=== PATIENT | female | born 1975 | race Caucasian/White ===

== ENCOUNTER 2022-09-02 15:43 | Emergency (ER) | payer OTHER, SELFPAY ==
[2022-09-02] VITALS (21 sets, daily range): BP systolic 136–185; BP diastolic 85–100; PULSE 67–85; RESP 18; TEMP 36.2; O2SAT 95–100; BMI 39.5
--- NOTE | 2022-09-02 16:05 | ED.GENADULT ---
HPI - General Adult General Time Seen by Provider: 16:05 Date Seen: 09/02/22 Chief complaint: Chest Pain Stated complaint: Chest Pain Time Seen by Provider: 09/02/22 16:05 Source: patient and RN notes reviewed Mode of arrival: ambulatory Limitations: no limitations History of Present Illness HPI narrative: Lisa is a very pleasant 47-year-old female previously healthy who comes to the emergency room with abdominal and chest pain. Patient states that she had been at work and when she was departing at approximately 0230 she had the onset of some abdominal pain that radiated into her back. She shows this to be epigastric area. She described it is coming in waves. She thought this was indigestion and to drink some water and some had some Tums at home. Unfortunately her pain started worsening and radiating into her chest and into her jaw. She notes that the pain is definitely in her back and is coming in waves. She has never had anything like this in the past. She does not think that movement seems to worsen the pain. She has no nausea with this and has not been dealing with any recent cough cold congestion or fevers. Patient denies lower extremity edema, history of E DVT or calf pain. She still retains a gallbladder. She notes that at 5 years of age she had a umbilical hernia repair otherwise no other abdominal surgeries. Related Data Home Medications Medication Instructions Recorded Confirmed No Known Home Medications 09/02/22 09/02/22 Allergies Allergy/AdvReac Type Severity Reaction Status Date / Time codeine AdvReac Intermediate Agitated Verified 09/02/22 15:59 Review of Systems Status of ROS: Reports: 10 or more systems reviewed and unremarkable except as noted in History and below Const: Denies: fever or chills ENMT: Denies: throat pain, neck pain, throat swelling or hoarseness Cardio: Reports: chest pain; Denies: palpitations, edema, swelling of feet/ankles or shortness of breath with exertion Resp: Denies: shortness of breath or cough GI: Reports: abdominal pain; Denies: nausea, vomiting or diarrhea : Denies: painful urination Musculo: Denies: neck pain Neuro: Denies: headache Allergy/Immuno: Denies: throat swelling PFSH PFSH Social History Smoking Status: Never smoker Do you use any of these nicotine containing products: None Second hand tobacco smoke exposure: Yes How often do you have a drink containing alcohol: monthly or less How many standard drinks containing alcohol do you have on a typical day: 1 or 2 How often do you have six or more drinks on one occasion: Never AUDIT-C Alcohol total score: 1 Non-prescribed substance use: denies use service: No Exam Narrative: Exam Narrative: Patient is alert and oriented. She is nontoxic in appearance. Eyes are clear and neck is supple without lymphadenopathy. Heart with a regular rate and rhythm. I do auscultate 2/6 murmur otherwise no other abnormalities. Lungs are clear bilaterally. Abdomen is soft nontender. Perhaps some mild tenderness in the epigastrium however but negative Velasquez sign. Negative pulsating mass. Abdomen is not distended. Bowel sounds are present. Lower extremities without edema. No calf tenderness. Pedal pulses are symmetrical. Const: Vital Signs, click to edit/add: Vital Signs - 24 hr 09/02/22 15:59 09/02/22 16:16 09/02/22 16:30 Temperature 97.2 F L Pulse Rate 73 76 Pulse Rate [Pulse Oximeter] 75 Respiratory Rate 18 Blood Pressure Blood Pressure [Ri ght Upper Arm] 185/100 H Pulse Oximetry 100 97 97 Oxygen Delivery Me thod Room Air 09/02/22 16:32 09/02/22 16:45 09/02/22 17:00 Temperature Pulse Rate 78 85 79 Pulse Rate [Pulse Oximeter] Respiratory Rate Blood Pressure 147/86 H Blood Pressure [Ri ght Upper Arm] Pulse Oximetry 96 98 98 Oxygen Delivery Me thod 09/02/22 17:02 09/02/22 17:15 09/02/22 17:30 Temperature Pulse Rate 81 80 73 Pulse Rate [Pulse Oximeter] Respiratory Rate Blood Pressure 138/92 H Blood Pressure [Ri ght Upper Arm] Pulse Oximetry 96 97 97 Oxygen Delivery Me thod 09/02/22 17:32 09/02/22 17:47 09/02/22 18:00 Temperature Pulse Rate 74 73 70 Pulse Rate [Pulse Oximeter] Respiratory Rate Blood Pressure 144/89 H Blood Pressure [Ri ght Upper Arm] Pulse Oximetry 95 99 99 Oxygen Delivery Me thod 09/02/22 18:02 09/02/22 18:15 09/02/22 18:30 Temperature Pulse Rate 68 67 73 Pulse Rate [Pulse Oximeter] Respiratory Rate Blood Pressure 161/94 H Blood Pressure [Ri ght Upper Arm] Pulse Oximetry 99 100 97 Oxygen Delivery Me thod 09/02/22 18:32 09/02/22 18:45 09/02/22 19:00 Temperature Pulse Rate 70 71 73 Pulse Rate [Pulse Oximeter] Respiratory Rate Blood Pressure 154/85 H Blood Pressure [Ri ght Upper Arm] Pulse Oximetry 97 99 95 Oxygen Delivery Me thod 09/02/22 19:02 09/02/22 19:15 09/02/22 19:30 Temperature Pulse Rate 69 74 72 Pulse Rate [Pulse Oximeter] Respiratory Rate Blood Pressure 136/94 H Blood Pressure [Ri ght Upper Arm] Pulse Oximetry 96 99 98 Oxygen Delivery Me thod Documenting provider has reviewed patient's vital signs: yes Course Course Hospital Course: At this time differential diagnosis includes but is not limited to acute coronary event, angina, aortic dissection, pneumonia, pleurisy, pneumothorax, gastritis, of GERD, biliary colic, bowel obstruction. Will place an IV and draw labs to include CBC, comprehensive panel, urinalysis, CRP, lipase, troponin. Will do an EKG and chest x-ray as well. Reevaluation(s) Reevaluation #1: Patient noted to have a negative troponin. EKG is reassuring. Ultrasound of the abdomen is ordered. Patient notes improvement of her pain. She notes at rest it is a 1-3 but when the waves come it does increase to a 5. Mainly in her back. Reevaluation #2: Patient notes complete resolution of her discomfort. Did not receive any pain medications here. Blood pressure is much improved. Vital Signs Vital signs: Initial Vital Signs Temperature 97.2 F L 09/02/22 15:59 Temperature Source Temporal Artery Scan 09/02/22 15:59 Pulse Rate 75 09/02/22 15:59 Respiratory Rate 18 09/02/22 15:59 Blood Pressure 185/100 H 09/02/22 15:59 Blood Pressure Mean 128 H 09/02/22 15:59 Pulse Oximetry 100 09/02/22 15:59 Oxygen Delivery Method Room Air 09/02/22 15:59 Vital Signs Temperature 97.2 F L 09/02/22 15:59 Pulse Rate 75 09/02/22 15:59 Respiratory Rate 18 09/02/22 15:59 Blood Pressure 185/100 H 09/02/22 15:59 Pulse Oximetry 100 09/02/22 15:59 Oxygen Delivery Method Room Air 09/02/22 15:59 Temperature 97.2 F L 09/02/22 15:59 Pulse Rate 72 09/02/22 19:30 Respiratory Rate 18 09/02/22 15:59 Blood Pressure 136/94 H 09/02/22 19:02 Pulse Oximetry 98 09/02/22 19:30 Oxygen Delivery Method Room Air 09/02/22 15:59 Medical Decision Making MDM Narrative Medical decision making narrative: 1. Atypical chest pain-patient noted to have EKGs of normal sinus rhythm without any acute changes and 2 sets of negative cardiac enzymes approximately 2 hours apart. Patient has had complete resolution of her symptoms. In addition D-dimer is negative and there is no evidence of mediastinal widening. This would suggest no evidence of aortic dissection or PE. 2. Abdominal pain-suspect that this is biliary colic. Ultrasound was negative for any gallbladder abnormalities and so I do suggest referral for HIDA scan as an outpatient. In the meantime omeprazole 20 mg p.o. daily for 2 weeks. 3. Disposition -home at this time. However for worsening symptoms return to the emergency room for further evaluation. Patient voices understanding. She [place] live in town and close to the hospital. Dictation done with voice recognition, and as a result, wrong word or [id number] substitutions may have occurred.? There may be errors in the script that have gone undetected.? Please consider this when interpreting information found in this chart. Medical Records Medical records reviewed: Yes I reviewed the patient's medical records Lab Data Lab results reviewed: Yes I reviewed the patient's lab results Labs: Lab Results 09/02/22 09/02/22 09/02/22 Range/Units 16:25 17:45 18:45 WBC 6.05 (4.50-11.00) K/uL RBC 4.91 (4.00-5.20) m/uL Hgb 14.1 (12.0-16.0) gm/dL Hct 42.4 (33.0-51.0) % MCV 86 (80-100) fL MCH 29 (26-34) pg MCHC 33 (32-36) gm/dL RDW Coeff of [place] 12.7 (11.5-15.5) % Plt Count 252 (140-440) K/uL Neut % (Auto) 54.7 (42.0-72.0) % Lymph % (Auto) 34.0 (20-44) % [place] % (Auto) 8.3 (0.0-11.0) % Eos % (Auto) 2.3 (0.0-7.0) % Baso % (Auto) 0.7 (0.0-3.0) % Neut # (Auto) 3.31 (1.7-7.0) K/uL Lymph # (Auto) 2.06 (0.90-2.90) K/uL [place] # (Auto) 0.50 (0.00-0.90) K/UL Eos # (Auto) 0.14 (0.00-0.50) K/uL Baso # (Auto) 0.04 (0.00-0.30) K/uL D-Dimer Quant (PE/DVT) 0.34 (0.00-0.50) ug/ml Sodium 139 (135-149) mmol/L Potassium 3.7 (3.6-5.1) mmol/L Chloride 104 (96-114) mmol/L Carbon Dioxide 28 (20-32) mmol/L BUN 10 (5-24) mg/dL Creatinine 0.9 (0.5-1.5) mg/dL Estimated Creat Clear 66.73 Estimated GFR 79 ml/min Glucose 86 (60-115) mg/dL Calcium 9.9 (8.4-10.6) mg/dL Total Bilirubin 0.5 (0.1-1.5) mg/dL Direct Bilirubin 0.2 (0.0-0.5) mg/dL AST 34 (12-35) U/L ALT 46 H (4-35) U/L Alkaline Phosphatase 82 (40-150) U/L C-Reactive Protein 0.8 (0.5-1.0) mg/dL Total Protein 7.5 (6.0-8.3) g/dL Albumin 4.5 (3.3-5.0) g/dL Lipase 66 (23-300) U/L Urine Color Yellow (Yellow) Urine Appearance Clear (Clear) Urine pH 7.0 (5.0-8.5) Ur Specific [place] 1.015 (1.000-1.030) Urine Protein Negative (Negative) Urine Glucose (UA) Negative (Negative) Urine Ketones Negative (Negative) Urine Blood Negative (Negative) Urine Nitrite Negative (Negative) Urine Bilirubin Negative (Negative) Urine Urobilinogen 0.2 (0.2-1.0) Ur Leukocyte Esterase Negative (Negative) Urine RBC 0-2 (0-2) Urine WBC 0-2 (0-5) Ur Squamous Epith Cells None (None-Few) Urine Bacteria None (None) POC Troponin I 0.00 L 0.00 L (0.01-0.04) ng/ml Imaging Data Chest x-ray: Attestation: I have reviewed the pertinent imaging results. My impression: No obvious infiltrates or widened mediastinum Radiologist's impression: There is no focal consolidation, effusion, or pneumothorax. The cardiomediastinal silhouette is within normal limits. The bony thorax is grossly intact. Impression: No acute cardiopulmonary abnormality. US - abdomen: Attestation: I have reviewed the pertinent imaging results. ECG Data Attestation: I personally reviewed and interpreted this ECG as follows: Interpretation: EKG by my read shows sinus rhythm at a rate of 79. I do not note any acute ST or T-wave changes. EKG 2. By my read shows sinus rhythm at a rate of [address] or T-wave changes. Normal QT and AR intervals. Discharge Plan Discharge Clinical Impression: Atypical chest pain Patient Disposition: Home, Self-Care Condition: Improved Additional Instructions: Suggest follow-up with our surgeon or your primary doctor for scheduling of an outpatient HIDA scan. Suggest use of omeprazole over the counter, 1 tablet daily for 2 weeks. Return to the emergency room for worsening symptoms. Prescriptions: No Action No Known Home Medications Follow Up/Referrals: Dinah Naylor MD [Primary Care Provider] - Stand Alone Forms: [employer] Info Instructions
--- NOTE | 2022-09-02 16:14 | CRLHL7_ITS ---
For Patients: As a result of the Century Cures Act, medical imaging exams and procedure reports are released immediately into your electronic medical record. You may view this report before your referring provider. If you have questions, please contact your health care provider. Indication: Chest pain Comparison: None available. Technique: Single AP view chest Findings: There is no focal consolidation, effusion, or pneumothorax. The cardiomediastinal silhouette is within normal limits. The bony thorax is grossly intact. Impression: No acute cardiopulmonary abnormality. Dictated by Daryn Willingham MD @ 09/02/2022 5:45:34 PM (Electronically Signed)
[2022-09-02 16:44] LABS: Basophils Absolute Auto 0.04 K/uL (0.00-0.30); Basophils Percent Auto 0.7 % (0.0-3.0); Eosinophils Absolute Auto 0.14 K/uL (0.00-0.50); Eosinophils Percent Auto 2.3 % (0.0-7.0); Hematocrit 42.4 % (33.0-51.0); Hemoglobin* 14.1 gm/dL (12.0-16.0); Lymphocytes Absolute Auto 2.06 K/uL (0.90-2.90); Mean Corpuscular HGB Conc 33 gm/dL (32-36); Mean Corpuscular Hemoglobin 29 pg (26-34); Mean Corpuscular Volume 86 fL (80-100); Monocytes Percent Auto 8.3 % (0.0-11.0); Neutrophils Absolute Auto 3.31 K/uL (1.7-7.0); Neutrophils Percent Auto 54.7 % (42.0-72.0); Platelet Count* 252 K/uL (140-440); RDW Coefficient of Variation % 12.7 % (11.5-15.5); Red Blood Count 4.91 m/uL (4.00-5.20); White Blood Count* 6.05 K/uL (4.50-11.00)
[2022-09-02 17:02] LABS: D Dimer Quantitative* 0.34 ug/ml (0.00-0.50)
[2022-09-02 17:03] LABS: Slide Review Reflex No
[2022-09-02 17:25] LABS: Albumin* 4.5 g/dL (3.3-5.0); Chloride* 104 mmol/L (96-114)
[2022-09-02 17:26] LABS: Potassium* 3.7 mmol/L (3.6-5.1); Sodium* 139 mmol/L (135-149)
[2022-09-02 17:27] LABS: Creatinine* 0.9 mg/dL (0.5-1.5); Est. Creatinine Clearance* 66.73; Estimated Glomerular Filt Rate 79 ml/min
[2022-09-02 17:28] LABS: Alanine Aminotransferase* 46 U/L (4-35); Alkaline Phosphatase* 82 U/L (40-150); Aspartate Amino Transferase* 34 U/L (12-35); Bilirubin Direct* 0.2 mg/dL (0.0-0.5); Bilirubin Total* 0.5 mg/dL (0.1-1.5); Blood Urea Nitrogen* 10 mg/dL (5-24); Carbon Dioxide* 28 mmol/L (20-32); Lipase* 66 U/L (23-300); Total Protein* 7.5 g/dL (6.0-8.3)
[2022-09-02 17:29] LABS: Calcium* 9.9 mg/dL (8.4-10.6); Glucose* 86 mg/dL (60-115)
[2022-09-02 17:31] LABS: C Reactive Protein* 0.8 mg/dL (0.5-1.0)
--- NOTE | 2022-09-02 17:45 | CRLHL7_ITS ---
For Patients: As a result of the Cures Act, medical imaging exams and procedure reports are released immediately into your electronic medical record. You may view this report before your referring provider. If you have questions, please contact your health care provider. INDICATION: Epigastric chest abdominal pain TECHNIQUE: Ultrasound abdomen limited. Sonographic images of the right upper quadrant were obtained using ramos-scale and color Doppler images. COMPARISON: None FINDINGS: Liver: Moderate fatty infiltration of the liver is noted. Mild hepatomegaly is present with the liver measuring 18 cm. Gallbladder: The neck of the gallbladder is not well demonstrated. No gallstones or sludge seen in the lumen. The gallbladder wall is normal in appearance. No pericholecystic fluid is present. No sonographic Velasquez???s sign is present. Common bile duct: 5 mm. No intrahepatic biliary ductal dilatation seen. Pancreas: The visualized portions of the pancreatic head and body are normal in appearance. Right Kidney: 11 cm. No hydronephrosis or ureterectasis is seen. Vascular: The visualized abdominal aorta and IVC are unremarkable. IMPRESSION: 1. Moderate fatty infiltration of the liver is noted. Mild hepatomegaly is present with the liver measuring 18 cm. Dictated by Lupillo Senior MD @ 09/02/2022 7:04:33 PM Dictated by: Lupillo Senior MD @ 09/02/2022 19:08:34 (Electronically Signed)
[2022-09-02 18:29] LABS: Appearance Urine Clear (Clear); Bilirubin Urine Negative (Negative); Blood Urine Negative (Negative); Color Urine Yellow (Yellow); Glucose Urine Negative (Negative); Ketones Urine Negative (Negative); Leukocyte Esterase Urine Negative (Negative); Nitrite Urine Negative (Negative); Protein Urine Negative (Negative); Specific Gravity Urine 1.015 (1.000-1.030); Urobilinogen Urine 0.2 (0.2-1.0)
[2022-09-02 18:42] LABS: RBC Urine 0-2 (0-2); WBC Urine 0-2 (0-5)
== END 2022-09-02 19:42 | disposition home or self-care (01) ==
PROVIDERS: Emergency Provider Family Medicine; PCP Family Medicine
DX: R07.89 Other chest pain (principal)
CPT/HCPCS: 36415; 71045; 76705; 80048; 80076; 81001; 83690; 84484; 85025; 85379; 86140; 93005; 99284; 99285

== ENCOUNTER 2024-02-27 18:24 | Outpatient (CLI) | payer BC, SELFPAY | END 2024-02-27 18:25 | disposition home or self-care (01) | LOC: NFLDREF 02-28 04:07 | PROVIDERS: PCP Family Medicine; Referring Provider Family Medicine; Visit Provider Nurse Practitioner Family | DX: R30.0 Dysuria (principal); R39.9 Unspecified symptoms and signs involving the genitourinary system; N30.90 Cystitis, unspecified without hematuria | CPT/HCPCS: 87086; 87186 ==